=== PATIENT | male | born 1995 | race Caucasian/White ===

== ENCOUNTER 2017-11-16 00:41 | Emergency (ER) | payer BC, SELFPAY ==
[2017-11-16 00:45] VITALS: BP 0/0; PULSE 125; RESP 16; TEMP 36.4; O2SAT 96; BMI 30.2
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
[2017-11-16 03:45] VITALS: BP 130/94; PULSE 130; RESP 16; TEMP 37; O2SAT 97
[2017-11-16 04:10] VITALS: BP 130/84; PULSE 126; RESP 16; TEMP 37; O2SAT 97
== END 2017-11-16 04:10 ==
PROVIDERS: Emergency Provider Emergency Medicine; Family Provider Family Medicine
DX: R55 Syncope and collapse (principal); F10.99 Alcohol use, unspecified with unspecified alcohol-induced disorder; V89.0XXA Person injured in unspecified motor-vehicle accident, nontraffic, initial encounter
CPT/HCPCS: 70450; 71045; 71250; 72125; 72170; 74176; 99283

== ENCOUNTER 2020-11-13 17:49 | Emergency (ER) | payer OTHER, SELFPAY ==
[2020-11-13 18:26] VITALS: BP 117/88; PULSE 82; RESP 19; TEMP 37.2; O2SAT 99; BMI 32.5
[2020-11-13 18:27] LABS: UTC Influenza A Antigen Negative (Negative)
[2020-11-13 18:28] LABS: UTC Influenza B Antigen Negative (Negative)
--- NOTE | 2020-11-13 19:05 | HMH.EDUTC ---
[facility] Disposition Clinical Impression: Encounter for laboratory testing for COVID-19 virus URI (upper respiratory infection) Qualifiers: URI type: unspecified URI Qualified Code(s): J06.9 - Acute upper respiratory infection, unspecified Disposition: Home, Self-Care Condition on Discharge: Good Instructions: Sore Throat, Sinusitis, DI for Sinusitis, Azithromycin Additional Instructions: *Monitor Temp, Over the counter Motrin or Tylenol as directed/as needed Tylenol every 4 hours and Motrin every 6 hours (as long as your family doctor has told you that you can take it) for fever or pain. and straight to ER if unable to lower temp less than 101.0 after medication given *Warm salt water gargles may help to soothe the throat *Throat Lozenges *Warm fluids like tea with honey may help to soothe the throat *Sleep elevated *Humidifier/Vaporizer Follow up IMMEDIATELY for new or worsening symptoms or no Noticeable improvement over the next 48-72 hours. 911 for difficulty breathing or swallowing You were tested for today for COVID19 your test result should be back in the next 24-48 hours, you may call to the [facility] to see if your test results are back in the next 48 hours [phone] [facility] hours are 9am-9pm You was given a handout with instructions for Self Quarantine and Self isolation for while you wait on test results and what to do if they are positive If you are positive the Health Dept will be contacting you also Prescriptions: Azithromycin [Z-José Miguel 250mg Tab] 250 mg PO DIRECTED #6 tab Transmission Status: Pending to [id number] Referrals: Kade Pereira MD [Primary Care Provider] - As needed Forms: Work/School Release Time of Disposition: 19:12 Medical Decision Making - Yosvany Inquiry Pt receiving controlled substance: No Yosvany was queried for this patient: No Vital Signs: 11/13/20 18:26 Temperature 98.9 F Temperature Source Oral Pulse Rate [Right] 82 Respiratory Rate 19 Blood Pressure [Right Arm] 117/88 Blood Pressure Mean [Right Arm] 97 Blood Pressure Source [Right Arm] Automatic Cuff Blood Pressure Position [Right Arm] Sitting 02 Sat by Pulse Oximetry 99 Oxygen Delivery Method Room Air - Lab Data Lab results reviewed: Yes: I reviewed the patient's lab results. Lab Results 11/13/20 18:07: Influenza Type A Ag Negative, Influenza Type B Ag Negative Orders (Tests/Meds): ORDERS Category Date Time Status Covid-19 Nasal PCR ([facility]) Routine Lab 11/13/20 18:06 Ordered [facility] HPI - General Stated complaint: feverish, difficulty breathing Time Seen by Provider: 11/13/20 19:05 Mode of Arrival: Ambulatory Source of Information: Patient Limitations: No Limitations Description of Symptoms (Recalled from Triage Doc. by RN): body aches, weak, cough, fatigue since morning. HEENT Symptoms (Recalled from RN notes): No Resp Symptoms (Recalled from RN notes): Yes (cough) Skin Symptoms (Recalled from RN notes): No MS Symptoms (Recalled from RN notes): No Functional Status (Recalled from RN notes): na - History of Present Illness Provider Complaint: Patient states that he has not felt well for several days States that he has bene having sinus congestion, fever, body aches, feeling tired and over all not feeling well State that he was at work earlier and felt like he had a fever and couldnt breath in his mask which improved after he walked outside but they wanted him to come in and get checked and tested for COVID States that he is not feeling short of breath now but his throat is scratchy and having sinus pressure - Related Data Previous Rx's Medication Instructions Recorded albuterol sulfate 90 mcg/actuation 2 puff INHALATION Q6H PRN 7 Days 05/23/19 aerosol inhaler #6.7 g azithromycin 250 mg tablet 250 mg PO QDAY 5 Days #6 tab 05/23/19 prednisone 20 mg tablet 20 mg PO BID 5 Days #10 tab 05/23/19 Azithromycin [Z-José Miguel 250mg Tab] 250 mg PO DIRECTED #6 tab 11/13/20 Allergies
[2020-11-13 19:13] VITALS: BP 116/89; PULSE 87; RESP 19; TEMP 37.2
--- NOTE | 2020-11-14 09:32 | PC.NURSE ---
ATTEMPTED TO CALL PATIENT TO INFORM HIM OF POSITIVE COVID TEST. NO ANSWER. WILL CONTINUE TO CALL BACK
--- NOTE | 2020-11-14 11:56 | PC.NURSE ---
PATIENT NOTIFIED OF POSITIVE COVID TEST AT THIS TIME
== END 2020-11-13 19:17 | disposition home or self-care (01) ==
PROVIDERS: Emergency Provider Nurse Practitioner; PCP Family Medicine
DX: U07.1 COVID-19 (principal); J45.909 Unspecified asthma, uncomplicated; F17.210 Nicotine dependence, cigarettes, uncomplicated; Z79.899 Other long term (current) drug therapy
CPT/HCPCS: 87804; 99202; G0463; U0003

== ENCOUNTER 2023-01-09 11:47 | Emergency (ER) | payer OTHER, SELFPAY ==
[2023-01-09 12:40] VITALS: BP 121/76; PULSE 86; RESP 18; TEMP 36.8; O2SAT 100; BMI 32.5
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
[2023-01-09 13:21] VITALS: BP 121/76; PULSE 86; RESP 18; TEMP 36.8; O2SAT 100
== END 2023-01-09 13:25 | disposition home or self-care (01) ==
PROVIDERS: Emergency Provider Nurse Practitioner; PCP Family Medicine
DX: S30.810A Abrasion of lower back and pelvis, initial encounter (principal); V28.49XA Other motorcycle driver injured in noncollision transport accident in traffic accident, initial encounter
CPT/HCPCS: 99212; 99214; G0463

== ENCOUNTER 2024-01-11 18:50 | Emergency (ER) | payer SELFPAY ==
[2024-01-11 19:00] VITALS: BP 113/78; PULSE 68; RESP 20; TEMP 36.7; O2SAT 97; BMI 32.5
--- NOTE | 2024-01-11 19:02 | ED_ITS ---
Discharge Plan Disposition Patient Disposition: Home, Self-Care Condition: Good Prescriptions Prescriptions: New erythromycin 5 mg/gram (0.5 %) ointment 1 cm ophthalmic (eye) Q4H 7 Days Qty: 3.5 0RF ibuprofen [IBU] 800 mg tablet 800 mg PO Q8HP PRN (Reason: Moderate Pain) Qty: 30 0RF Referrals Follow up/Referrals: Provider,Referral, MD [Primary Care Provider] - See instructions Activity Restrictions/Add. Instructions Additional Instructions/Restrictions: Use the erythromycin ointment as prescribed for the prescribed length of time. Follow up with opthalmology. We usually refer abrasions like this to [facility]. Please call their office in the morning to get an appointment to be seen there. Their office phone number is . Make sure you follow up with the eye doctor. Rest your eye for the next few days. Take the ibuprofen that we sent the prescription in for. Corneal abrasions are usally very painful. Follow up with your primary care physician also. GO TO THE ER FOR ANY WORSENING SYMPTOMS Clinical Impressions Clinical Impression: Right cornea abrasion Stand Alone Forms Stand Alone Forms: Work/School Release Instructions Patient Instructions: DI for Corneal Abrasion, Corneal Abrasion, Ibuprofen, Erythromycin Ophthalmic Discharge ED Provider: Jon[facility] General Stated complaint: RT eye irritation Time Seen by Provider: 01/11/24 19:02 History of Present Illness Provider Complaint: He states that earlier today he was cutting a piece of [employer] tubing when it came loose and hit him in the right eye. He has had right eye irritation, redness and pain since then. He denies other injury. He states that his vision is essentially normal other than he has had excessive tears. His tetanus immunization is not up to date. Related Data Previous Rx's Medication Instructions Recorded erythromycin 5 mg/gram (0.5 %) eye 1 cm ophthalmic (eye) Q4H 7 days 01/11/24 ointment #3.5 grams ibuprofen 800 mg tablet (IBU) 800 mg PO Q8HP PRN Moderate Pain 01/11/24 #30 tabs Allergies Allergy/AdvReac Type Severity Reaction Status Date / Time poison pascual extract Allergy Verified 05/23/19 12:08 hydromorphone [From Dilaudid] AdvReac Verified 05/23/19 12:08 [facility] Disclaimer: The information contained in this section may have been updated after the patient was seen, as this information can be updated by other users. Social History Smoking Status: Current every day smoker tobacco type: cigarettes packs per day: 1 alcohol intake: never substance use type: denies use current occupational status: employed Travel in the last 8 weeks: None household members: family ROS Obtained: Yes All systems reviewed & no additional complaints except as documented Constitutional Constitutional: Denies chills and Denies fever(s) Eyes Eyes: Reports as per HPI, Denies blind spots, Denies change in vision, Denies diplopia, Denies floaters and Reports photophobia ENT Ears, Nose, Mouth, and Throat: Denies dizziness, Denies otalgia and Denies sore throat Cardiovascular Cardiovascular: Denies chest pain Respiratory Respiratory: Denies shortness of breath, Denies chest congestion, Denies cough, Denies stridor and Denies wheezing Gastrointestinal Gastrointestingal: Denies nausea or vomiting Musculoskeletal Musculoskeletal: Reports system reviewed and no additional complaints, except as documented and Denies arthralgias Integumentary/Breasts Skin/Breast: Denies rash Neurologic Neurologic: Denies dizziness and Denies paresthesias Allergic/Immunologic Allergic/Immunologic: Denies wheezing Physical Exam General General appearance: alert and in no apparent distress Head Head exam: atraumatic, normocephalic and normal inspection Eye Eye exam: Present PERRL and EOMI Expanded Eye Exam Eyelids: left: normal inspection and right: erythema Pupils: Left: size (2), Right: size (2) and Bilateral: regular, round and reactive Sclera/Conjunctival: left: normal inspection and right: injection (no foreign body noted. there is a corneal abrasion noted. ) ENT ENT exam: Present normal exam, normal oropharynx, mucous membranes moist, TM's normal bilaterally and normal external ear exam Neck Neck exam: Present normal inspection, full ROM and trachea midline; Absent meningismus or lymphadenopathy Chest Chest inspection: Present normal inspection and symmetric chest wall rise; Absent tenderness Respiratory Respiratory exam: Present normal lung sounds bilaterally; Absent respiratory distress Cardiovascular Cardiovascular exam: Present regular rate and normal rhythm; Absent JVD Abdominal Exam Abdominal exam: Present soft and normal bowel sounds; Absent distention, tenderness or guarding Extremities Exam Extremities exam: Present normal inspection, full ROM and normal capillary refill; Absent calf tenderness Back Exam Back exam: Present normal inspection; Absent tenderness Neurological Exam Neurological exam: Present alert and oriented X3 Psychiatric Psychiatric exam: Present normal affect and normal mood Skin Skin exam: Present warm, dry, intact and normal color Lymphatic Lymphatic Findings: no adenopathy Medical Decision Making Yosvany Inquiry Pt receiving controlled substance: No Procedures Risk/Benefits of Procedure(s) Were Explained: Yes Eye Exam/FB Removal Location: eye (R) Topical anesthetic used: tetracaine Fluorescein Stick(s) used: Yes Time Out performed: Yes Procedure performed under: direct visualization with magnification Foreign body: other (none) Evidence of corneal penetration: No Technique: irrigation Post-procedure medication: ophthalmic antibiotic (erythromycin ointment) Eye irrigated w/saline (#ccs): 25 Patient tolerated procedure: well and no complications Complications: other (He tolerated this well. corneal abrasion noted. )
[2024-01-11] MEDS: TET/DIPHTH/PERT-ADULT 0.5ML SYRINGE 0.5 ML IM (19:30)
[2024-01-11 19:36] VITALS: BP 113/78; PULSE 68; RESP 20; TEMP 36.7; O2SAT 97
[2024-01-11] MEDS: ERYTHROMYCIN BASE 1 GM OINT...G. OP (19:37)
[2024-01-11] MEDS: EYE WASH IRRIGATION SOLN 118ML BOTTLE 120 ML OP (19:38)
[2024-01-11] MEDS: FLUORESCEIN SODIUM 1MG STRIP 1 MG OP (19:40)
[2024-01-11] MEDS: TETRACAINE 0.5% OPTH SOL 15ML OP (19:40)
== END 2024-01-11 19:45 | disposition home or self-care (01) ==
PROVIDERS: Emergency Provider Nurse Practitioner Family
DX: S05.01XA Injury of conjunctiva and corneal abrasion without foreign body, right eye, initial encounter (principal); F17.210 Nicotine dependence, cigarettes, uncomplicated; W45.8XXA Other foreign body or object entering through skin, initial encounter; Z23 Encounter for immunization
CPT/HCPCS: 90471; 90715; 99212; 99214; G0463

== ENCOUNTER 2024-12-13 15:20 | Outpatient (CLI) | payer SELFPAY ==
[2024-12-13 16:42] LABS: Basophils # 0.1 K/mm3 (0-0.2); Basophils % 0.8 % (0.1-2.0); Eosinophils # 0.1 K/mm3 (0.0-0.4); Eosinophils % 1.8 % (0.1-12.0); Hematocrit 45.8 % (42.0-52.0); Hemoglobin 15.4 g/dL (14.1-18.0); Lymphocytes # 1.7 K/mm3 (0.7-4.5); Lymphocytes % 25.5 % (10-50); Mean Corpuscular HGB Conc 33.6 g/dL (31.8-35.4); Mean Corpuscular Hemoglobin 32.9 pg (27.0-31.2); Mean Corpuscular Volume 97.9 fl (80-94); Mean Platelet Volume 12.1 fl (7.4-10.4); Monocytes # 0.5 K/mm3 (0.1-1.0); Monocytes % 6.9 % (1.7-9.3); Neutrophils # 4.3 K/mm3 (1.8-7.8); Neutrophils % 64.8 % (37.0-80.0); Platelet Count 200 K/mm3 (142-424); Red Blood Count 4.68 M/mm3 (4.60-6.20); Red Cell Distribution Width 13.4 % (11.5-17.5); White Blood Count 6.6 K/mm3 (4.8-10.8)
[2024-12-13 17:48] LABS: Alanine Aminotransferase 25 U/L (12-78); Albumin Level 4.8 g/dl (3.5-5.0); Albumin/Globulin Ratio 2.1 (1.1-1.8); Alkaline Phosphatase 103 U/L (38-126); Anion Gap 12.9 mEq/L (5-15); Aspartate Amino Transferase 32 U/L (17-59); Bilirubin,Total 0.3 mg/dl (0.2-1.3); Blood Urea Nitrogen 16 mg/dl (9-20); Calcium 9.8 mg/dl (8.4-10.2); Carbon Dioxide 27 mmol/L (22.0-30.0); Chloride 108 mmol/L (98-107); Estimated Glomerular Filt Rate 79 ml/min (>60); GFR (African American) 95 ML/MIN (>60); Globulin 2.3 g/dL (1.3-3.2); Glucose 84 mg/dl (74-100); Potassium 4.9 mmoL/L (3.5-5.1); Sodium 143 mmol/L (136-145); Total Protein,Serum 7.1 g/dl (6.3-8.2)
== END 2024-12-13 23:59 | disposition home or self-care (01) ==
LOC: LAB.DROPOF 12-16 12:35
PROVIDERS: PCP Internal Medicine; Visit Provider Internal Medicine
DX: R25.2 Cramp and spasm (principal)
CPT/HCPCS: 80053; 85025

== ENCOUNTER 2025-09-18 16:18 | Emergency (ER) | payer SELFPAY ==
[2025-09-18 16:24] VITALS: BP 150/82; PULSE 96; RESP 16; TEMP 36.6; O2SAT 97; BMI 29.4
--- NOTE | 2025-09-18 16:40 | XR_ITS ---
PROCEDURE INFORMATION: Exam: XR Right Knee Exam date and time: 09/18/2025 4:33 PM Age: 30 years old Clinical indication: Pain; Knee; Right; Additional info: Tenderness TECHNIQUE: Imaging protocol: Radiologic exam of the right knee. Views: 3 views. COMPARISON: No relevant prior studies available. FINDINGS: Bones/joints: No acute fracture or dislocation. No degenerative changes. Small suprapatellar joint effusion. Soft tissues: Unremarkable. IMPRESSION: 1. No acute fracture or dislocation of the right knee. 2. Small suprapatellar joint effusion.
[2025-09-18] MEDS: IBUPROFEN 800 MG TABLET PO (16:54)
[2025-09-18] MEDS: ACETAMINOPHEN 500MG TAB 1000 MG PO (16:55)
--- NOTE | 2025-09-18 17:05 | HMH.EDGENADL ---
Discharge Plan Disposition Patient Disposition: Home, Self-Care Condition: Good Prescriptions Prescriptions: No Action No Known Home Medications Referrals Follow up/Referrals: Alfredo Hartmann DO [Staff Physician, Orthopedics] - See instructions Joselito Vuong DO [Primary Care Provider, Family Practice] - See instructions Activity Restrictions/Add. Instructions Additional Instructions/Restrictions: Call Dr. Hartmann now or tomorrow morning to schedule a clinic appointment. Try to avoid as much heavy lifting or strenuous activity until you follow-up in clinic. Use Tylenol Motrin as needed for pain control. Use ice for swelling. Return to the emergency department if you are unable to get, if your knee gets swollen, red or you are unable to bend the knee. Clinical Impressions Clinical Impression: Acute knee pain, Joint effusion Print Language Print Language: [place]gu[place] Discharge ED Provider: Ryann Robbins Adult HPI General Chief complaint: Extremity Injury, Lower Stated complaint: Right knee pain Time Seen by Provider: 09/18/25 16:23 Mode of Arrival: Ambulatory Source of Information: Patient Description of Symptoms (Recalled from ER Triage Doc. by RN): Patient states that yesterday he was working on a car and twisted his right knee. Happened around 1300. Has not taken anything for it. History of Present Illness HPI narrative: Patient is an otherwise healthy 30-year-old male who presented to the emergency department with right knee pain. Patient states that he was working on his car yesterday when he squatted and twisted his knee felt a pop. Patient states that the knee feels better when he is squatting worse when he is walking around. Patient has been able to ambulate just with associated pain. Patient reports some mild swelling. States that most of his pain is on the medial aspect of his right knee. Patient states that he has had a previous meniscal injury but no other injuries in the past. Denies any other associated trauma. Related Data Home Medications ?Medication ?Instructions ?Recorded ?Confirmed No Known Home Medications 12/13/24 12/13/24 Allergies Allergy/AdvReac Type Severity Reaction Status Date / Time poison pascual extract Allergy Rash Verified 09/18/25 16:29 hydromorphone (From Dilaudid) AdvReac Rash Verified 09/18/25 16:29 [facility] Disclaimer: The information contained in this section may have been updated after the patient was seen, as this information can be updated by other users. Medical History (Updated 09/18/25 @ 17:07 by Ryann Robbins DO) Tear of meniscus of left knee Surgical History (Updated 12/13/24 @ 14:58 by Vanesa Jerome CMA) History of appendectomy H/O knee surgery Family History (Updated 12/13/24 @ 14:59 by Vanesa Jerome CMA) Sister Stroke Father Cancer Social History (Updated 12/13/24 @ 15:00 by Vanesa Jerome CMA) Smoking Status: Current every day smoker tobacco type: cigarettes packs per day: 1 alcohol intake: current alcohol intake frequency: holidays/special occasions only substance use type: denies use current occupational status: employed Travel in the last 8 weeks?: None household members: family Have you lived/traveled outside [place] in past 30 days?: No Contact w/someone who lives/traveled outside [place] past 30 days?: No Exposure to someone with infectious disease in past 14 days?: No Do you have a fever (greater than 100.4 F or 38 C)?: No Have you tested positive for COVID-19?: No Exposed to someone with COVID-19 in past 14 days?: No Do you have a sore throat?: No Do you have a cough?: No Do you have any weakness?: No Do you have any diarrhea?: No Are you experiencing any unusual bleeding?: No Do you have any muscle aches/pain?: No Do you have any abdominal pain?: No Are you experiencing loss of taste or smell?: No Other Medical History Have you received the Flu Vaccine for this season: No Have you received the Pneumonia Vaccine: No ROS Obtained: Yes All systems reviewed & no additional complaints except as documented and Yes Systems reviewed as appropriate & no additional complaints except as documented Physical Exam General General appearance: alert and in no apparent distress Head Head exam: atraumatic, normocephalic and normal inspection Eye Eye exam: Present normal appearance, PERRL and EOMI; Absent scleral icterus ENT ENT exam: Present normal exam and normal external ear exam Neck Neck exam: Present normal inspection and full ROM Chest Chest inspection: Present normal inspection and symmetric chest wall rise Respiratory Respiratory exam: Present normal lung sounds bilaterally; Absent respiratory distress or wheezes Cardiovascular Cardiovascular exam: Present regular rate, normal rhythm and normal heart sounds Abdominal Exam Abdominal exam: Present soft and distention; Absent tenderness, guarding or rebound Extremities Exam Extremities exam: Present normal inspection, full ROM and other (RLE with some medial tenderness and swelling along the knee, no bruising, negative karl, no laxity) Back Exam Back exam: Present normal inspection and full ROM Neurological Exam Neurological exam: Present alert and oriented X3 Psychiatric Psychiatric exam: Present normal affect and normal mood Skin Skin exam: Present warm and dry Medical Decision Making Medical Records Medical records reviewed: Yes I reviewed the patient's medical records. Screening: Per USPSTF and CDC recommendations, given the prevalence of disease in our region, it is our hospital?s policy to screen for HIV and viral Hepatitis for all patients aged 18 and over and those with ongoing risk factors. Yosvany Inquiry Pt receiving controlled substance: No Vital Signs: 09/18/25 16:24 09/18/25 17:19 Temperature 97.8 F 97.8 F Temperature Source Oral Oral Pulse Rate 84 Pulse Rate [Left Brachial] 96 H Respiratory Rate 16 16 Blood Pressure 142/74 H Blood Pressure [Left Arm] 150/82 H Blood Pressure Mean [Left Arm] 104 Blood Pressure Source Automatic Cuff Blood Pressure Source [Left Arm] Automatic Cuff Blood Pressure Position Sitting Blood Pressure Position [Left Arm] Sitting 02 Sat by Pulse Oximetry 97 Oxygen Delivery Method Room Air Room Air Lab Data Lab results reviewed: Yes I reviewed the patient's lab results. Orders (Tests/Meds): ED MEDICATIONS Discontinued Medications Generic Name Dose Route Start Last Admin Trade Name Freq PRN Reason Stop Dose Admin Acetaminophen 1,000 mg 09/18/25 16:40 09/18/25 16:55 Acetaminophen 500mg Tab PO 09/18/25 16:41 1,000 mg ONCE ONE Administration Ibuprofen 800 mg 09/18/25 16:40 09/18/25 16:54 Ibuprofen 800 Mg Tablet PO 09/18/25 16:41 800 mg ONCE ONE Administration ORDERS Category Date Time Status Knee XR right 3 views [XR knee RT 3V] Stat Exams 09/18/25 16:40 Completed POCUS Point of Care (ER Only) Stat Exams 09/18/25 16:41 Completed Medical Decision Narrative: Patient is an otherwise healthy 30-year-old male who presented to the emergency department with concern for right lower extremity knee pain. On arrival, patient was hemodynamically stable with unremarkable Eitel signs. Differential includes but not limited to: Fracture, dislocation, ligamentous injury, tendinous injury, traumatic hemarthrosis or traumatic effusion, amongst others. On exam, patient did have medial knee swelling and tenderness. Patient had no redness, patient had full range of motion of the knee. Patient was able to ambulate. Patient was otherwise neurovascularly intact. Patient had negative Karl's, no laxity. Bedside ultrasound was performed and showed a medial effusion. X-ray was obtained which showed no acute fracture or dislocation no other bony pathology. However, suprapatellar effusion was seen. I suspect the patient may have a partial ligamentous or tendinous injury or possible meniscal injury. Patient was sent with symptomatic management advised to follow-up with Dr. Hartmann in the orthopedic clinic. Patient was otherwise discharged home in stable condition return precautions were discussed. Critical Care Critical Care Time Critical Care Time: No
[2025-09-18 17:19] VITALS: BP 142/74; PULSE 84; RESP 16; TEMP 36.6; O2SAT 98
== END 2025-09-18 17:20 | disposition home or self-care (01) ==
PROVIDERS: Emergency Provider Student in an Organized Health Care Education/Training Program; PCP Internal Medicine
DX: M25.561 Pain in right knee (principal); M25.461 Effusion, right knee; X50.1XXA Overexertion from prolonged static or awkward postures, initial encounter
CPT/HCPCS: 73562; 99283